=== PATIENT | male | born 1975 | race Caucasian/White ===

== ENCOUNTER 2018-03-18 18:04 | Observation (INO) | payer OTHER ==
[2018-03-18] MEDS ORDERED: ONDANSETRON 4 MG/2 ML VIAL ONE (18:29)
[2018-03-18] MEDS ORDERED: ONDANSETRON 4 MG/2 ML VIAL IVP ONE (18:32)
--- NOTE | 2018-03-18 18:55 | EDPHY ---
H & P Time Seen by Provider: 03/18/18 18:54 HPI/ROS: Chief complaint. Overheated HPI. 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 He has been out in the sun and heat all day. He began to have dizziness and blurred vision and nausea vomiting this afternoon after all day heat exposure. He has slight confusion per . Denies chest pain or shortness of breath. There has been nausea vomiting. He has been dizzy. No abdominal pain. 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 ROS Constitutional. Generalized weakness Eyes. no problems with vision ENT. no sore throat, no nasal drainage Cardiovascular. no chest pain Respiratory. no shortness of breath, no cough Abdominal. Vomiting . no problems urinating MS. no calf pain/swelling, no neck/back pain, no joint pain Skin. no rash Lymph. no swollen glands Neuro. Headache and dizzy Past Medical/Surgical History: Bladder issues Social History: , nonsmoker, no alcohol Smoking Status: Never smoked Physical Exam: General Appearance: Arousable well-developed male moderate distress vitals are stable Eyes: Pupils equal and round no pallor or injection. ENT, Mouth: Mucous membranes are moist. Respiratory: There are no retractions, lungs are clear to auscultation. Cardiovascular: Regular rate and rhythm. Gastrointestinal: Abdomen is soft and nontender, no masses, bowel sounds normal. Neurological: Awake and alert, sensory and motor exams grossly normal. Skin: Warm and dry, no rashes. Musculoskeletal: Neck is supple nontender. Extremities symmetrical, full range of motion. Psychiatric: Patient is oriented X 3, there is no agitation. Constitutional: Initial Vital Signs Temperature (C) 36.7 C 03/18/18 18:18 Heart Rate 65 03/18/18 18:18 Respiratory Rate 16 03/18/18 18:18 Blood Pressure 139/80 H 03/18/18 18:18 O2 Sat (%) 97 03/18/18 18:18 O2 Delivery Mode Nasal Cannula O2 (L/minute) 2 Allergies/Adverse Reactions: No Known Allergies Allergy (Unverified 03/18/18 18:17) Home Medications: Medication Instructions Recorded Tamsulosin HCl [Flomax 0.4 MG (*)] 0.4 mg PO HS 03/18/18 Medical Decision Making - Diagnostics EKG Interpretation: EKG interpreted by me shows normal sinus rhythm normal interval and axis. QRS is normal there is no significant ST elevation or depression no arrhythmia. Rate 72 Procedures: IV normal saline 2 L of fluid ED Course/Re-evaluation: Recheck at 8:20 p.m. Patient is improved however we feels he is somewhat confused. Patient's potassium was low is given oral potassium replacement Patient continues to be somewhat lethargic. He is ambulatory. Differential Diagnosis: Patient has heat exhaustion after being working in the heat all day. Somewhat dehydrated. He has hypokalemia. No evidence for rhabdomyolysis. - Data Points Laboratory Results: Laboratory Results 03/18/18 19:05 03/18/18 19:05 03/18/18 03/18/18 03/18/18 19:16 19:05 19:05 WBC 7.48 10^3/uL 10^3/uL (3.80-9.50) RBC 4.05 10^6/uL L 10^6/uL (4.40-6.38) Hgb 12.2 g/dL L g/dL (13.7-17.5) Hct 35.8 % L % (40.0-51.0) MCV 88.4 fL fL (81.5-99.8) MCH 30.1 pg pg (27.9-34.1) MCHC 34.1 g/dL g/dL (32.4-36.7) RDW 12.9 % % (11.5-15.2) Plt Count 175 10^3/uL 10^3/uL (150-400) MPV 9.6 fL fL (8.7-11.7) Neut % (Auto) 88.5 % H % (39.3-74.2) Lymph % (Auto) 6.8 % L % (15.0-45.0) Sevier % (Auto) 4.3 % L % (4.5-13.0) Eos % (Auto) 0.0 % L % (0.6-7.6) Baso % (Auto) 0.1 % L % (0.3-1.7) Nucleat RBC Rel Count 0.0 % % (0.0-0.2) Absolute Neuts (auto) 6.62 10^3/uL H 10^3/uL (1.70-6.50) Absolute Lymphs (auto) 0.51 10^3/uL L 10^3/uL (1.00-3.00) Absolute Monos (auto) 0.32 10^3/uL 10^3/uL (0.30-0.80) Absolute Eos (auto) 0.00 10^3/uL L 10^3/uL (0.03-0.40) Absolute Basos (auto) 0.01 10^3/uL L 10^3/uL (0.02-0.10) Absolute Nucleated RBC 0.00 10^3/uL 10^3/uL (0-0.01) Immature Gran % 0.3 % % (0.0-1.1) Immature Gran # 0.02 10^3/uL 10^3/uL (0.00-0.10) RBC/WBC/PLT Morphology TNP Platelet Estimate TNP Sodium 136 mEq/L mEq/L (135-145) Potassium 3.0 mEq/L L mEq/L (3.3-5.0) Chloride 112 mEq/L H mEq/L (97-110) Carbon Dioxide 19 mEq/l L mEq/l (22-31) Anion Gap 5 mEq/L L mEq/L (8-16) BUN 16 mg/dL mg/dL (7-23) Creatinine 0.6 mg/dL L mg/dL (0.7-1.3) Estimated GFR > 60 Glucose 94 mg/dL mg/dL (70-100) Calcium 7.2 mg/dL L mg/dL (8.5-10.4) Creatine Kinase 113 IU/L IU/L (0-224) POC Troponin I 0.00 ng/mL ng/mL (0.00-0.08) Medications Given: Discontinued Medications Sodium Chloride (Ns) 1,000 mls @ 0 mls/hr IV EDNOW ONE; Wide Open PRN Reason: Protocol Stop: 03/18/18 19:03 Last Admin: 03/18/18 19:16 Dose: 1,000 mls Ketorolac Tromethamine (Toradol) 15 mg IVP ONCE ONE Stop: 03/18/18 21:10 Last Admin: 03/18/18 21:18 Dose: 15 mg Ondansetron HCl (Zofran) 4 mg IVP EDNOW ONE Stop: 03/18/18 18:33 Last Admin: 03/18/18 18:33 Dose: 4 mg Potassium Chloride (Potassium Chloride Oral Liquid) 20 meq PO EDNOW ONE Stop: 03/18/18 20:25 Last Admin: 03/18/18 20:30 Dose: 20 meq Promethazine HCl (Phenergan) 12.5 mg IVP EDNOW ONE Stop: 03/18/18 19:03 Last Admin: 03/18/18 19:16 Dose: 12.5 mg Point of Care Test Results: Chemistry 03/18/18 19:16 POC Troponin I 0.00 ng/mL ng/mL (0.00-0.08) Departure - Departure Disposition: [facility] Inpatient Acute Clinical Impression: Hypokalemia Heat exhaustion Qualifiers: Encounter type: initial encounter Qualified Code(s): T67.5XXA - Heat exhaustion , unspecified, initial encounter Condition: Fair
[2018-03-18] MEDS ORDERED: NS 1,000 ML IV ONE (19:02)
[2018-03-18] MEDS ORDERED: PROMETHAZINE HCL 25 MG/ML INJ IVP ONE (19:02)
--- NOTE | 2018-03-18 19:31 | CPEKG ---
Heart Rate: 72 RR Interval: 833 P-R Interval: 164 QRSD Interval: 88 QT Interval: 412 QTC Interval: 451 P Brussels: 75 QRS [place]: 66 T Wave [place]: 34 EKG Severity - NORMAL ECG - EKG Impression: SINUS RHYTHM Electronically Signed By: Varinder Valdez 18-Mar-2018 22:30:32
[2018-03-18 19:37] LABS: PLATELET COUNT 175 10^3/uL (150-400)
[2018-03-18 19:43] LABS: CREATINE KINASE 113 IU/L (0-224)
[2018-03-18] MEDS ORDERED: POTASSIUM CL 20 MEQ/15 ML UDCUP PO ONE (20:24)
[2018-03-18] MEDS ORDERED: KETOROLAC 15 MG/1 ML SDV IVP ONE (21:09)
[2018-03-18] MEDS ORDERED: IBUPROFEN 200 MG TAB PO ONE (21:09)
[2018-03-18] MEDS ORDERED: KETOROLAC 15 MG/1 ML SDV ONE (21:11)
[2018-03-18] MEDS ORDERED: OXYCODONE/APAP 5/325 TAB PO PRN (21:16)
[2018-03-18] MEDS ORDERED: PROMETHAZINE HCL 25 MG/ML INJ IVP PRN (21:16)
[2018-03-18] MEDS ORDERED: ONDANSETRON 4 MG/2 ML VIAL IVP PRN (21:16)
[2018-03-18] MEDS ORDERED: ACETAMINOPHEN 325 MG TAB PO PRN (21:16)
[2018-03-18] MEDS ORDERED: ONDANSETRON DISINTEGRATING 4 MG TAB PO PRN (21:16)
[2018-03-18] MEDS ORDERED: NS W/ 20 KCl/L 1,000 ML IV SCH (21:30)
--- NOTE | 2018-03-18 21:40 | GHP ---
[f rep st] HISTORY AND PHYSICAL DATE OF ADMISSION: 03/18/2018 CHIEF COMPLAINT: Dehydrated. 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 He does have a history of migraines which are often times associated with socorro sis as well as blurry vision. He notes that he started to get blurry vision and began to throw up. He threw up probably 8 times today. He was unable to keep any water or any food down because of this . He took 1 ibuprofen this morning but has not taken anything else. For his migraines normally he beulah tripp lies in a quiet room at closes his eyes which helps. He is feeling a little bit better now that he is in the emergency department. PAST MEDICAL/SURGICAL HISTORY: 1. Migraines. 2. Back pain. MEDICATIONS: Please see medication reconciliation. ALLERGIES: No known drug allergies. SOCIAL HISTORY: Occasionally drinks a beer. Does not smoke. FAMILY HISTORY: Reviewed and noncontributory. REVIEW OF SYSTEMS: A 10-point review of systems is conducted and is negative except per HPI. PHYSICAL EXAM: Blood pressure 126/71, heart rate 72, respiration rate 16, sat 97% on 2 L. Temperatu re 36.7. GENERAL: The patient is a pleasant man who is lying in bed, appears uncomfortable. Has hi s eyes closed. HEENT: Shows him to be normocephalic, atraumatic. CARDIOVASCULAR: Shows a regular rate and rhythm. No murmurs, rubs, or gallops. PULMONARY: Shows lungs clear to auscultation bilate rally. ABDOMINAL: Soft, nontender, nondistended. SKIN: Shows no rash. : Shows no Salazar. NEUR OLOGIC: Shows him to be alert and oriented x3. He is moving all extremities. PSYCHIATRIC: Shows n ormal mood and affect. LABS: Hemoglobin is 12.2, potassium is 3.0, bicarb 19, creatinine 0.6. Troponin is negative. DATA: 1. I discussed this with Dr. Valdez. We will admit to med/surg. 2. I personally viewed and interpreted his EKG. This shows sinus rhythm. There is nothing acutely ischemic. No peaked T-waves. No widened QRS. IMPRESSION AND PLAN: 1. Dehydration: Due to the persistent vomiting in the setting of a likely migraine. Will rehydrate him overnight and recheck his labs. 2. Hypokalemia: Due to vomiting. He has already gotten some repletion in the emergency department. We will give him potassium in his fluids and recheck in the morning. 3. Migraine: He normally takes ibuprofen and rest. I will give him 1 dose of IV Toradol and rehydr ate him. He additionally has antiemetics ordered as needed. 4. Anemia: This is lower than his previous. We will recheck in the morning. 5. Disposition: Admit to observation. I suspect he will be ready for discharge tomorrow. /[id number]/MODL
[2018-03-19 04:34] LABS: PLATELET COUNT 191 10^3/uL (150-400)
--- NOTE | 2018-03-19 10:36 | ASMTCMCOM ---
CM Note CM Note Notes: CM reviewed Pt's chart for D/C planning. Pt is a 43 y/o male. 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 He also has a hx of migraines which are often times associated with emesis as well as blurry vision. Yesterday he began to get blurry vision and throw up. He reports throwing up approx 8x. He was unabale to keep any water or food down. He felt a little better during his stay in the emergency room. Pt was admitted to Observation. He received treatment for dehydration and hypokalemia. It is anticipated that he will D/C today. No CM needs have been identified. CM will follow. D/C Plan: Independent anticipated. Date Signed: 03/19/2018 10:35 AM Electronically Signed By:Kelly Robertson
[2018-03-19 16:19] VITALS: BP 105/73
--- NOTE | 2018-03-19 16:25 | PDDCSUM ---
Discharge Summary Discharge Summary: DISCHARGE DIAGNOSES: * acute dehydration * intractable nausea vomiting * headache syndrome suggesting likely migraine etiology HOSPITAL COURSE SUMMARY: This patient comes in the hospital with intractable nausea vomiting unilateral headache and blurry vision. He was dehydrated as he arrived here as he had been vomiting through the day on a hot day. He did not have fevers and there were no neurologic symptoms otherwise. This is a recurrence symptom that is been going on for years for him. He was treated with antiemetics, and IV hydration. At this point his symptoms are very close to 100% resolved. He is eating and drinking well up walking about in the hallway has only a minimal headache left over. He has had 1 hospital admission for syndrome like this in the past. He has never been diagnosed with migraine but the symptoms certainly are suggestive of possible migraine. Is recommended to him that he seek further assessment for likely migraine illness versus other causes with his primary care physician and if needed with a headache specialist. PENDING TEST RESULTS: None MEDICATION CHANGES: P.r.n. Zofran for future episodes is prescribed FOLLOW-UP PLAN: Is recommended a make an appoint with his primary care physician for further assessment of his episodic headache and vomiting illness. It sounds like migraine but he should be assessed for other possible causes. He has been instructed to keep well hydrated and to keep a log of his episodes with what he has had to eat and drink, his sleep, stress levels and other possible triggers of these episodes. Greater than 35 minutes bedside and care coordination time today
[2018-03-19] MEDS ORDERED: TAMSULOSIN HCL 0.4 MG CAP PO SCH (21:00)
== END 2018-03-19 17:15 | disposition home or self-care (01) ==
LOC: EDUNIT# → INTOOBSV 20:31 → F1N 21:40
PROVIDERS: ADMIT Student in an Organized Health Care Education/Training Program; ATTEND Internal Medicine
DX: E86.0 Dehydration (principal); E87.6 Hypokalemia; R11.2 Nausea with vomiting, unspecified; G43.909 Migraine, unspecified, not intractable, without status migrainosus; D64.9 Anemia, unspecified; M54.9 Dorsalgia, unspecified
CPT/HCPCS: 93005; 96361; 96374; 96375; 99285; G0378; 84484-PO; J1885; J2405; J2550

== ENCOUNTER → 2019-02-04 | Outpatient (CLI) | payer OTHER | LOC: FIMAGING 10:34 ==